=== PATIENT | female | born 1985 | race Caucasian/White ===

== ENCOUNTER → 2018-04-19 | Emergency (ER) | payer OTHER ==
[~2018-04-19] VITALS: Ht 157.5 cm; Wt 49.9 kg
[~2018-04-19] MED LIST: ORPH100T PO; TESSALON PERLE100 MG PO; TUSSI-PRES LIQ120 ML PO
== END | disposition left against medical advice (07) ==
LOC: ER 07:34
DX: Z53.20 Procedure and treatment not carried out because of patient's decision for unspecified reasons (principal)

== ENCOUNTER 2018-04-23 08:45 | Emergency (ER) | payer OTHER ==
[~2018-04-23] VITALS: Ht 157.5 cm; Wt 49.9 kg
== END 2018-04-23 13:01 | disposition home or self-care (01) ==
LOC: ER 08:45
DX: R51 Headache (principal)